=== PATIENT | male | born 1965 | race Caucasian/White ===

== ENCOUNTER 2016-12-08 14:32 | Outpatient (CLI) | payer OTHER ==
[~2016-12-08] VITALS: Ht 167.6 cm; Wt 95.9 kg
[2016-12-08 14:50] VITALS: BP 131/79; PULSE 69; RESP 16; Ht 167.6 cm; Wt 95.9 kg
--- NOTE | 2016-12-08 18:04 | CONS ---
DATE OF ADMISSION: 12/08/2016 DATE OF CONSULTATION: 12/08/2016 PLACE OF SERVICE: [place], [place] [facility] INITIAL OUTPATIENT CONSULTATION NOTE PLACE OF SERVICE: [facility], 12/08/2016. IMPRESSION AND PLAN: This is a very pleasant 50-year-old gentleman with multiple comorbid issues in cluding hepatitis C, acquired through prior intravenous drug abuse that appears to be fairly compens ated and a number of other medical issues but who has had significant turnaround in his life and has become much healthier with no further intake of alcohol or use of intravenous drug use for more sheri n a year. He has an abnormality seen on a CT scan that was done for surveillance purposes and that appears to be either benign fold of the tail of pancreas versus a benign splenule. There is certain ly no indication for any obvious malignancy, either in the pancreas or in the liver. The elevated a lpha fetoprotein is somewhat concerning which appears have risen from 96.4 on 09/24/2016 to 124 on 0 11/20/2016. There are no obvious lesions in the liver after careful review by myself as well as a re view by one of our radiologists of the images. I do not see any indication for acute surgical inter vention at this time. I do see value for continued surveillance with perhaps a liver dedicated trip le phase IV contrast CT of the abdomen and pelvis to be done within the next 3 to 6 months. I also asked the patient's permission to allow us to present his case in a multidisciplinary fashion should it be necessary. I counseled him regarding further changes in his lifestyle to regain a healthy BM I between 18 to 25 as a goal. Note that his current BMI is 34.1 and he could certainly benefit by healthier choices in food intake as well as consistent exercise. I explained all of this in detail with the patient in the presence of his significant other (girlfriend) and answered all their questi ons to the best of my ability. I believe that the patient and family appeared to understand and agr ee with the plans. With above assessment I have recommended the followin. Repeat liver-dedicated triple phase IV, CT scan of the abdomen and pelvis in 3 to 6 months. 2. Close outpatient followup with Dr. Rain regarding rise in alpha fetoprotein. 3. Possible multidisciplinary tumor board presentation if the followup images appear to have a oleary ge in character of the area of the pancreas. 4. Change in lifestyle with the goal of decreasing the BMI of 34 to within 18 to 24 in the next 6 t o 12 months. 5. Agree with treatment of hepatitis CT. Thank you again for allowing us to participate in the care of this very pleasant gentleman and his w onderful family. If there are any questions, please feel free to call me at [phone]. TOTAL VISIT TIME: 45 minutes of which more than half was spent in [id number] discussion with the patient, discussions with his girlfriend as well as coordination of care between multiple physicians and providers. UPDATED CLINICAL SUMMARY: A very pleasant 50-year-old gentleman with multiple comorbid issues inclu ding hepatitis C, likely from intravenous drug abuse in the past, no treatment for his hepatitis C, obesity with BMI of 34.1, hyperlipidemia and a number of other medical issues being followed for his hepatitis C and rise in alpha fetoprotein from 96.4 on 09/24/2016 to 124 on 11/20/2016. CT scan on 10/21/2016, a triple phase liver dedicated showed mild nodularity of the liver with no arterial enh ancing liver lesions. COMORBIDITIES: 1. Hepatitis C diagnosed in 1983 and then later in 1988. He was considered for therapy with interf margie in 2008, but was not done. HCV RNA 05/23/2016 was over 3 million. Platelet count 152. HIV ne gative. F4 fibrosis by fiber test 08/2017. September 2016, total bilirubin 0.7. Alpha fetoprotein 136. AST 84. ALT 82. Albumin 3.8. Platelets 147. Alpha fetoprotein 96.4. INR 1.1. Ultrasound 09/2012 showed mild hepatomegaly. A 3.8 soft tissue mass near kidney and spleen. In 10/2016 above- mentioned CT scan. Alpha fetoprotein 11/2016 was 124. 2. Hepatitis A immune. 3. BMI of 34.1. 4. Hypertriglyceridemia. 5. HDL deficiency. 6. Precordial pain with some shortness of breath with activity. 7. Depression. 8. Alcoholism in remission. 9. Prior substance abuse. 10. Skin surgeries for abscesses. HISTORY OF THE PRESENT ILLNESS: The patient is a very pleasant 50-year-old gentleman with above-men tioned comorbidities who was kindly referred to us for evaluation and management of the abnormality seen on the tail of the pancreas on CT scan done 10/21/2016. The patient does not report any signif icant abdominal pain and certainly no weight loss. His appetite has been fairly well and unchanged. No changes in bowel or bladder habits, and no other pertinent positives or pertinent negatives on a complete 14-point review of systems. Of note, the patient does have some shortness of breath with activity and I recommended that he follows up with his teletypist as soon as possible as well. ALLERGIES: NO KNOWN DRUG ALLERGIES. MEDICATIONS: None taken at home. SOCIAL HISTORY: The patient was born in [facility]. He is single and has no children. He is in a sig nificant relationship with his girlfriend and credits her for ability to quit intravenous drug use a s well as alcohol intake and smoking. The patient stopped smoking recently. He smoked 1 pack a day since age 9. He used marijuana in the past starting at age 9 and stopped in April 2015. He also re ports intravenous drug use with the sharing needles beginning at age 11 with the use of heroin and s topped 04/2015. He has not drank alcohol for more than 5 years. He had heavy use for 41 years, sta rting at age 9 and quit in April 2015. FAMILY HISTORY: His brother with hepatic cirrhosis. No other major mention of medical, surgical or oncologic problems in the family. REVIEW OF SYSTEMS: Other than the above-mentioned, there are no other pertinent positives or pertin ent negatives in a complete 14-point review of systems. PHYSICAL EXAMINATION: GENERAL: The patient appears to be a very pleasant gentleman of descent, appeari ng stated age, sitting in a chair comfortably and in no acute distress. He has several tattoos over his body. His BMI is 34.1. VITAL SIGNS: Temperature 98.3. Blood pressure 131/79. Pulse 69. Respiratory rate 16, pulse oxim etry 94% on room air. ABDOMEN: Soft, protuberant but not distended and nontender. There is no evidence of organomegaly, c aput medusae, engorged subcutaneous veins, or evidence of ascites. There are no peritoneal signs or guarding. LABORATORY VALUES: Reviewed above. IMAGING: Reviewed above. Note that I personally reviewed these images and I agree in general with their overall reported findings. I also reviewed the images over the phone with one of our radiolog ists who had access to the digital images. Dictated By: STEFFANIE PACKER/JED Conf#: [id number] DID#: [id number] CC: Gagan France; Uli Rain;*[facility]*
== END 2016-12-08 16:47 | disposition home or self-care (01) ==
LOC: HPC 14:32
PROVIDERS: ATTEND Transplant Surgery
DX: B19.20 Unspecified viral hepatitis C without hepatic coma (principal); B15.9 Hepatitis A without hepatic coma; E78.1 Pure hyperglyceridemia; E78.6 Lipoprotein deficiency; F32.9 Major depressive disorder, single episode, unspecified; F10.21 Alcohol dependence, in remission; F19.10 Other psychoactive substance abuse, uncomplicated; E66.9 Obesity, unspecified; Z68.34 Body mass index [BMI] 34.0-34.9, adult
CPT/HCPCS: G0463

== ENCOUNTER 2016-12-27 09:01 | Emergency (ER) | payer OTHER ==
[~2016-12-27] VITALS: Wt 97.0 kg
[2016-12-27] MEDS ORDERED: ALBU8.5H3 INH (09:36)
[2016-12-27] MEDS ORDERED: D-ME473S18 PO (09:36)
--- NOTE | 2016-12-27 10:26 | ERD ---
ER Documentation Chief Complaint Date/Time DATE: 12/27/16 TIME: 10:25 Chief Complaint COUGH CONGESTION AND HEADACHE FOR 4 DAYS. NO DISTRESS. NO FEVERS. HPI This is a 50-year-old male that presents to the ER with a cough for the last 4 days. Patient states that yesterday cough was worse. Cough is productive and constant and keeps him up at night. He denies any chest pain or shortness of breath. He denies any wheezing. He denies any fevers or chills. He does admit to some sore throat and bilateral ear pain. He denies any nausea or vomiting. ROS 12 point review of systems was done, all negative except per HPI. Medications Home Meds Active Scripts Albuterol Sulfate* (Proair HFA*) 8.5 Gm Hfa.aer.ad, 2 PUFF INH Q4, #1 INHALER Prov:SARAI LOPEZ 12/27/16 Dextromethorphan Hb-Promethazine Hcl (Promethazine DM Syrup) 473 Ml Syrup, 10 ML PO Q6H Y for COUGH, #4 OZ Prov:SARAI LOPEZ 12/27/16 Allergies Allergies: Coded Allergies: No Known Drug Allergies (Verified Allergy, Unknown, 12/08/16) PMhx/Soc Medical and Surgical Hx: pt denies Medical Hx, pt denies Surgical Hx Hx Alcohol Use: No Hx Substance Use: No Hx Tobacco Use: No Smoking Status: Never smoker Physical Exam Vitals Vital Signs Date Time Temp Pulse Resp B/P Pulse Ox O2 Delivery O2 Flow Rate FiO2 12/27/16 09:08 98.6 88 21 106/75 96 Physical Exam GENERAL: The patient is well-developed, well-nourished, in no acute distress. NECK: Cervical spine is non tender with no step off. Supple, no nuchal rigidity HEENT: Atraumatic. Pupils equal, round and reactive to light. Extraocular muscles are grossly intact. Conjunctivae pink, no discharge. Bilateral tympanic membranes are clear with no evidence of erythema, effusion or dulling of the light reflex. Tonsilar erythema with no exudates or uvular deviation. Clear rhinorrhea. RESPIRATORY: Clear to auscultation bilaterally. There are no rales, wheezes or rhonchi. HEART: Regular rate and rhythm. No murmurs, clicks, rubs or gallops. EXTREMITIES: No clubbing or cyanosis. Full range of motion. Grossly neurovascularly intact. NEUROLOGIC: Alert and oriented. Cranial nerves II through XII are intact. SKIN: There is no rash. The skin is warm and dry. Procedures/MDM Differential diagnosis includes but is not limited to; Viral URI, allergic rhinitis, bronchitis, pertussis,pneumonia. This is likely viral in etiology. He did not feel x-ray was necessary at this time as patient is extremely well- appearing he is afebrile, is not hypoxic and his physical examination is benign. Clinical suspicion for pneumonia is low as patient appears well, is not hypoxic or in any respiratory distress. Additionally, patients physical examination is benign. Plan was discussed with patient they understand and agree. Patient needs to follow up with PCP in 1-2 days or return to ER sooner if symptoms worsen. Departure Diagnosis: Primary Impression: Upper respiratory infection Condition: Stable Patient Instructions: Preventing Common Respiratory Infections Additional Instructions: Call your primary care doctor TOMORROW for an appointment during the next 1-2 days.See the doctor sooner or return here if your condition worsens before your appointment time. SARAI LOPEZ Dec 27, 2016 10:26
== END 2016-12-27 10:02 | disposition home or self-care (01) ==
LOC: FTE 09:01
DX: J06.9 Acute upper respiratory infection, unspecified (principal)
CPT/HCPCS: 99284